=== PATIENT | male | born 1985 | race Caucasian/White ===

== ENCOUNTER 2019-06-15 18:53 | Emergency (ER) | payer OTHER ==
[~2019-06-15] VITALS: Ht 185.4 cm; Wt 96.2 kg
[~2019-06-15 18:53] MED LIST: PREVACID 24HR15 MG
[2019-06-15 20:27] VITALS: BP 122/80
== END 2019-06-15 20:28 | disposition home or self-care (01) ==
LOC: M.ERS 18:53
DX: S06.0X0A Concussion without loss of consciousness, initial encounter (principal); K21.9 Gastro-esophageal reflux disease without esophagitis; V89.2XXA Person injured in unspecified motor-vehicle accident, traffic, initial encounter; Y93.89 Activity, other specified; Y92.89 Other specified places as the place of occurrence of the external cause; Y99.8 Other external cause status